=== PATIENT | male | born 1985 | race Caucasian/White ===

== ENCOUNTER 2020-12-22 19:21 | Emergency (ER) | payer OTHER ==
--- NOTE | 2020-12-22 20:08 | EDM.PDOC ---
<Damaso Bardales - Last Filed: 12/23/20 06:56> ED HPI GENERAL MEDICAL PROBLEM - General Chief Complaint: Neck Problem Stated Complaint: NECK PAIN Time Seen by Provider: 12/22/20 19:50 - History of Present Illness INITIAL COMMENTS - FREE TEXT/NARRATIVE: Patient was signed out to me by Tammy Norman NP pending imaging at 10 PM I did reevaluate the patient and patient had normal vital signs and a swelling t o the right posterior neck without any overlying erythema. This area is mildly tender without any fluctuance. Labs reviewed which did reveal a mild leukocytosis of 11.17 with normal indices. CMP is unremarkable. The radiological images were viewed by myself along with reading the report from the radiologist. CT soft tissue neck reveals a 2.5 x 1.6 cm soft tissue mass in the right posterior neck. There is peripheral enhancement with low attenuation centrally. There is some soft tissue stranding and skin thickening. Findings are most consistent with a abscess. After imaging I did contact general surgeon Dr. Wen regarding the possible abscess. At this time given that it is peripheral and not around any vascular structures he stated that it would be okay if I completed the I&D. He stated he would be okay to follow-up in his clinic. There was significant delay in doing the incision drainage secondary to critical patients. I did discuss this with the patient. I discussed the results with the patient. Incision and drainage was performed by myself. The area was prepped with povidone and the skin was locally anesthetized with 1% lidocaine. An incision was made with an 11 blade. No purulent material was removed. The mass in the right posterior neck appeared fibrous similar to a fibroma or lipoma. Given that there was no abscess I did place one loose stitch with 6-0 absorbable suture. I instructed the patient to keep the area clean and to use ice and ibuprofen for inflammation. I do not believe there is an abscess here and this is likely secondary to just inflammation. 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 He is to return for any new or worsening symptoms such as trouble breathing, purulent drainage, redness or increased size. He was amenable to discharge at this time and had no further questions DISPOSITION: The patient was discharged home in stable condition. The patient will follow up with dermatology at his scheduled appointment CONDITION: Fair PROCEDURES: Incision and drainage FINAL IMPRESSION(S)/DIAGNOSES: 1. Acute right neck mass, suspect lipoma Damaso Bardales M.D. - Related Data Allergies Allergy/AdvReac Type Severity Reaction Status Date / Time No Known Allergies Allergy Verified 12/22/20 19:57 Home Meds: Home Meds . [No Known Home Meds] 12/22/20 [History] Departure - Departure Time of Disposition: 00:50 Disposition: Home, Self-Care 01 Condition: Fair Clinical Impression: Lipoma Qualifiers: Lipoma location: neck Qualified Code(s): D17.0 - Benign lipomatous neoplasm of skin and subcutaneous tissue of head, face and neck - Discharge Information *PRESCRIPTION DRUG MONITORING PROGRAM REVIEWED*: No *COPY OF PRESCRIPTION DRUG MONITORING REPORT IN PATIENT COLT: No Instructions: Lipoma Referrals: Contreras Lerner MD [Primary Care Provider] - Forms: ED Department Discharge Additional Instructions: You evaluate today on an emergent basis. At this time we did try to open up the swelling on your right neck. At this time there was no evidence of abscess. I do believe this is secondary to a lipoma or fibrous tumor. Please follow-up with dermatology for removal of this. In the interim please use ibuprofen 400 mg every 6 hours and ice the area 20 minutes 4 times a day. Keep the area clean. If you have any worsening symptoms please return to the emergency department. [facility] [address], [address] [place] [address] [phone] The patient is informed of any results of their evaluation and diagnostic workup and all questions are answered. They are given discharge instructions and return precautions. The patient is stable for discharge. The patient states they understand and agree with the plan and that they will return if their symptoms get worse or if they have any new concerns. The following information is given to patients seen in the emergency department who are being discharged to home. This information is to outline your options for follow-up care. We provide all patients seen in our emergency department with a follow-up referral. The need for follow-up, as well as the timing and circumstances, are variable depending upon the specifics of your emergency department visit. If you don't have a primary care physician on staff, we will provide you with a referral. We always advise you to contact your personal physician following an emergency department visit to inform them of the circumstance of the visit and for follow-up with them and/or the need for any referrals to a consulting specialist. The emergency department will also refer you to a specialist when appropriate. This referral assures that you have the opportunity for follow-up care with a specialist. All of these measure are taken in an effort to provide you with optimal care, which includes your follow-up. Under all circumstances we always encourage you to contact your private physician who remains a resource for coordinating your care. When calling for follow-up care, please make the office aware that this follow-up is from your recent emergency room visit. If for any reason you are refused follow-up, please contact the [facility] Emergency Department at and asked to speak to the emergency department charge nurse. <Phoebe Norman E - Last Filed: 12/26/20 17:09> ED HPI GENERAL MEDICAL PROBLEM - General Source of Information: Reports: Patient History Limitations: Reports: No Limitations - History of Present Illness INITIAL COMMENTS - FREE TEXT/NARRATIVE: HISTORY AND PHYSICAL: History of present illness: Patient is a 35-year-old male who presents to the emergency room with complaints of a cyst on the back of his neck. He states he has had this cyst for years and had previously had it lanced once before. A few years ago the cyst was lanced, since has been only mildly palpable but did not cause him any problems. On Tuesday he saw the school bus attendant for a cyst under his left eyebrow which was removed, he did have Dr. Orellana look at his neck although it was not enlarged or swollen at that time. He states shortly after leaving the dermatology office the cyst "flared up" and is now the size of a $0.50 piece. Denies any airway involvement. Patient denies any fever, chills, headache, change in vision, syncope or near syncope. Denies any chest pain, back pain, shortness of breath or cough. Denies any GI or symptoms. No numbness, tingling, saddle parasethesias, or weakness of the upper extremity. Review of systems: As per history of present illness and below otherwise all systems reviewed and negative. Past medical history: As per history of present illness and as reviewed below otherwise noncontributory. Surgical history: As per history of present illness and as reviewed below otherwise noncontributory. Social history: See social history for further information Family history: As per history of present illness and as reviewed below otherwise noncontributory. Physical exam: General: Well developed and well nourished 35 year old male. Alert and orientated x 3. Nontoxic in appearance and in no acute distress. Vital signs are stable and have been reviewed by me. Nursing notes were reviewed. HEENT: Atraumatic, normocephalic, pupils equal and reactive bilaterally, negative for conjunctival pallor or scleral icterus, mucous membranes moist, TMs normal bilaterally, throat clear, neck supple, palpable fixed mass to right lateral/posterior neck without lymphadenopathy, trachea midline. No drooling or trismus noted. No meningeal signs. No hot potato voice noted. Lungs: Clear to auscultation bilaterally. No wheezes, rales, or rhonchi. Chest nontender. Normal work of breathing, no accessory muscles used. Heart: S1S2, regular rate and rhythm without overt murmur, gallops, or rubs. No JVD. No peripheral edema Abdomen: Soft, nondistended, nontender. Normoactive bowel sounds. Negative for masses or costovertebral tenderness. Pelvis: Stable nontender. Genitourinary/Rectal: Deferred. Skin: Sutures noted below left eyebrow, healing well. A palpable fixed mass to right lateral/posterior neck without lymphadenopathy. No surrounding erythema or fluctuance. Skin is pink, intact, warm, dry. No lesions or rashes noted. Hematologic: No petechiae or purpra. Mucosa appropriate color and normal nail bed color and refill. Extremities: Atraumatic, moves all extremities per self without difficulty or deficits, negative for cords or calf pain. Neurovascular unremarkable. Neuro: Awake, alert, oriented. Cranial nerves II through XII unremarkable. Cerebellum unremarkable. Motor and sensory unremarkable throughout. Exam nonfocal. Psychiatric: Mood and affect are appropriate. Normal thought process. Answering questions appropriately. Notes: *This patient was seen and evaluated during the 2019 SARS-CoV-2 novel coronavirus pandemic period. Community viral transmission is ongoing at time of this encounter and the emergency department is operating under pandemic response procedures. I did have Dr Bardales involved in this case. Lab work is WNL, slight leukocytosis. CT of neck ordered. Awaiting results. Dr Bardales will follow this case and disposition appropriately. Diagnostics: CBC, CMP, CT soft tissue neck Therapeutics: SL Definitive disposition and diagnosis as appropriate pending reevaluation and review of above. neck pain Pain Score (Numeric/FACES): 3 Past Medical History Other Dermatologic History: has cyst to neck and had one on the L eye which was removed - Past Surgical History HEENT Surgical History: Reports: Tonsillectomy Social & Family History - Tobacco Use Tobacco Use Status *Q: Never Tobacco User - Recreational Drug Use Recreational Drug Use: No ED ROS GENERAL - Review of Systems Review Of Systems: Comprehensive ROS is negative, except as noted in HPI. ED EXAM, UPPER BACK/NECK PAIN - Physical Exam Exam: See Below (See dictation) Course - Vital Signs Last Recorded V/S: Last Vital Signs Temp 97.7 F 12/22/20 19:54 Pulse 83 12/23/20 00:34 Resp 16 12/23/20 00:34 BP 124/87 12/23/20 00:34 Pulse Ox 96 12/23/20 00:34 - Orders/Labs/Meds Labs: Laboratory Tests 12/22/20 12/22/20 Range/Units 20:30 20:30 WBC 11.17 H (4.0-11.0) K/uL RBC 4.68 (4.50-5.90) M/uL Hgb 14.7 (13.0-17.0) g/dL Hct 42.4 (38.0-50.0) % MCV 90.6 (80.0-98.0) fL MCH 31.4 (27.0-32.0) pg MCHC 34.7 (31.0-37.0) g/dL RDW Std Deviation 43.3 (28.0-62.0) fl RDW Coeff of [place] 13 (11.0-15.0) % Plt Count 162 (150-400) K/uL MPV 10.80 (7.40-12.00) fL Neut % (Auto) 69.2 (48.0-80.0) % Lymph % (Auto) 22.9 (16.0-40.0) % [place] % (Auto) 6.7 (0.0-15.0) % Eos % (Auto) 1.0 (0.0-7.0) % Baso % (Auto) 0.2 (0.0-1.5) % Neut # (Auto) 7.7 H (1.4-5.7) K/uL Lymph # (Auto) 2.6 H (0.6-2.4) K/uL [place] # (Auto) 0.8 (0.0-0.8) K/uL Eos # (Auto) 0.1 (0.0-0.7) K/uL Baso # (Auto) 0.0 (0.0-0.1) K/uL Nucleated RBC % 0.0 /100WBC Nucleated RBCs # 0 K/uL Sodium 138 (136-148) mmol/L Potassium 3.7 (3.5-5.1) mmol/L Chloride 103 (98-107) mmol/L Carbon Dioxide 21.4 (21.0-32.0) mmol/L BUN 15 (7.0-18.0) mg/dL Creatinine 1.2 (0.8-1.3) mg/dL Est Cr Clr Drug Dosing 110.34 mL/min Estimated GFR (MDRD) > 60.0 ml/min Glucose 113 H (74-106) mg/dL Calcium 8.6 (8.5-10.1) mg/dL Total Bilirubin 0.5 (0.2-1.0) mg/dL AST 20 (15-37) IU/L ALT 48 (14-63) IU/L Alkaline Phosphatase 109 (46-116) U/L Total Protein 7.4 (6.4-8.2) g/dL Albumin 4.0 (3.4-5.0) g/dL Globulin 3.4 (2.6-4.0) g/dL Albumin/Globulin Ratio 1.2 (0.9-1.6) Meds: Medications Discontinued Medications Generic Name Dose Route Start Last Admin Trade Name Freq PRN Reason Stop Dose Admin Doxycycline Hyclate 100 mg 12/22/20 22:19 12/22/20 22:42 Vibramycin PO 12/22/20 22:20 100 mg ONETIME ONE Administration Iopamidol 100 ml 12/22/20 21:31 12/22/20 21:31 Isovue Multipack-370 (76%) IVPUSH 12/22/20 21:32 100 ml ONETIME STA Administration Lidocaine/Epinephrine 20 ml 12/22/20 22:19 12/22/20 22:41 Xylocaine 1% With Epinephrine 1:100,000 INJECT 12/22/20 22:20 20 ml ONETIME ONE Administration Sepsis Event Note (ED) - Evaluation Sepsis Screening Result: No Definite Risk
[2020-12-22 20:58] LABS: BLOOD UREA NITROGEN,BUN 15 mg/dL (7.0-18.0); CARBON DIOXIDE,CO2 21.4 mmol/L (21.0-32.0); CHLORIDE,CL 103 mmol/L (98-107); GLUCOSE RANDOM 113 mg/dL (74-106); POTASSIUM,K 3.7 mmol/L (3.5-5.1); SODIUM,NA 138 mmol/L (136-148)
[2020-12-22] MEDS ORDERED: Iopamidol 755 MG/ML 500 ML Multipack Bottle IVPUSH STA (21:31)
--- NOTE | 2020-12-22 22:01 | CT ---
INDICATION: Right posterior neck cyst versus mass versus abscess. TECHNIQUE: CT of the neck with 80 cc Isovue 370 IV iodinated contrast agent. Coronal and sagittal reconstructions are included. COMPARISON: None FINDINGS: There is a 2.5 x 1.6 cm soft tissue mass right posterior neck subcutaneous fat. There is peripheral enhancement with low attenuation centrally. Associated soft tissue stranding in the adjacent subcutaneous fat as well as skin thickening. Findings most consistent with an abscess. Multiple right sided lymph nodes are normal in size but asymmetrically increased in number when compared with the left. The oral cavity, nasopharyngeal, oropharyngeal and hypopharyngeal mucosal spaces are normal. No periapical dental disease. The supraglottic, glottic and infraglottic larynx are normal. The airway including the trachea is normal and is patent. The parotid glands, submandibular and sublingual glands are normal in appearance. The thyroid gland is normal in appearance. The vascular structures opacify normally with contrast material. No suspicious lytic or blastic osseous lesions. Mild polypoid mucosal thickening in the left maxillary sinus. Otherwise the visualized paranasal sinuses and mastoid air cells are clear. The nasal septum is deviated to the right. Visualized orbital and intracranial contents are normal. Supraclavicular regions, mediastinum and soft tissues of the imaged chest wall are normal. Visualized portions of the upper lungs are clear. IMPRESSION: 1. There is a 2.5 x 1.6 cm soft tissue mass right posterior neck subcutaneous fat. Peripheral enhancement with low attenuation centrally. Associated soft tissue stranding and skin thickening. Findings most consistent with an abscess and adjacent cellulitis. 2. Multiple right sided lymph nodes are normal in size but asymmetrically increased in number when compared with the left, likely reactive in etiology. Please note that all CT scans at this facility use dose modulation, iterative reconstruction, and/or weight-based dosing when appropriate to reduce radiation dose to as low as reasonably achievable. Dictated by Teo Riggs MD @ Dec 23 2020 8:08AM Signed by Dr. Teo Riggs @ Dec 23 2020 8:15AM
[2020-12-22] MEDS ORDERED: Lidocaine 1% with EPINEPHrine 1:100,000 20 ML MDV INJECT ONE (22:19)
[2020-12-22] MEDS ORDERED: Doxycycline 100 MG Cap PO ONE (22:19)
== END 2020-12-23 01:05 | disposition home or self-care (01) ==
LOC: MW.ED 19:21
DX: R22.1 Localized swelling, mass and lump, neck (principal)
CPT/HCPCS: 36415; 70491; 80053; 85025; 99283; A9270; Q9967